=== PATIENT | female | born 1960 | race Caucasian/White ===

== ENCOUNTER 2019-12-04 02:07 | Emergency (ER) | payer OTHER ==
[~2019-12-04] VITALS: Ht 160 cm; Wt 74.3 kg
[2019-12-04 03:26] LABS: BASOPHILS # (AUTO) 0.01 x10^3/uL (0-0.1); BASOPHILS % (AUTO) 0 % (0-1); EOSINOPHILS # (AUTO) 0.04 x10^3/uL (0-0.4); EOSINOPHILS % (AUTO) 0 % (1-7); LYMPHOCYTES # (AUTO) 0.91 x10^3/uL (1-3.4); LYMPHOCYTES % (AUTO) 8 % (22-44); MD NO; MEAN CORPUSCULAR HEMOGLOBIN 30.3 pg (27.0-34.8); MEAN CORPUSCULAR HGB CONC 33.7 g/dL (32.4-35.8); MEAN CORPUSCULAR VOLUME 89.9 fL (80-100); MEAN PLATELET VOLUME 6.9 fL (7.4-10.4); MONOCYTES # (AUTO) 0.49 x10^3/uL (0.2-0.8); MONOCYTES % (AUTO) 5 % (2-9); NEUTROPHILS # (AUTO) 9.31 x10^3/uL (1.8-6.8); NEUTROPHILS % (AUTO) 87 % (42-75); PLATELET COUNT 281 x10^3/uL (130-400); RED BLOOD COUNT 4.91 x10^6/uL (3.82-5.3); RED CELL DISTRIBUTION WIDTH 13.7 % (9.6-15.2)
[2019-12-04 03:30] LABS: ALBUMIN 3.8 g/dL (3.4-5.0); ANION GAP 9 mmol/L (5-15); CALCIUM 9.3 mg/dL (8.5-10.1); CHLORIDE 108 mmol/L (98-107)
[2019-12-04 03:34] LABS: ALANINE AMINOTRANSFERASE 37 U/L (12-78); ALKALINE PHOSPHATASE 102 U/L (45-117); BILIRUBIN,TOTAL 0.8 mg/dL (0.2-1.0); CREATININE 1.23 mg/dL (0.55-1.02); TOTAL PROTEIN 7.8 g/dL (6.4-8.2)
--- NOTE | 2019-12-04 06:10 | NUR ---
PT TO ROOM FROM LOBBY AT THIS TIME.
--- NOTE | 2019-12-04 06:28 | NUR ---
PT RESTING IN GOWN IN [facility]. URINE SAMPLE COLLECTED USING ASEPTIC TECHNIQUE WITH RN, TIFF, AT BS TO ASSIST. PT TOLERATED WELL. SAMPLE WALKED TO LAB AT THIS TIME. PT EDUCATED ON ER PROCESS AND POC AND VERBALIZES UNDERSTANDING. CALL LIGHT IS WITHIN REACH OF PT.
[2019-12-04] MEDS ORDERED: ONDANSETRON 2MG/ML, 2ML IVPush ONE (06:30)
[2019-12-04] MEDS ORDERED: SODIUM CHLORIDE FLUSH 10ML SYR IVF ONE (06:30)
[2019-12-04] MEDS ORDERED: MORPHINE SULFATE 4 MG/ML, 1ML ONE ×2 (06:33→08:23)
[2019-12-04] MEDS ORDERED: ONDANSETRON 2MG/ML, 2ML ONE (06:33)
--- NOTE | 2019-12-04 06:42 | NUR ---
pt medicated per mar for pain. vss and updated in emr.
[2019-12-04] MEDS: MORPHINE SULFATE 4 MG/ML, 1ML IVPush PRN ×2 (06:43→08:25)
[2019-12-04 06:52] LABS: MICROSCOPIC INDICATED
--- NOTE | 2019-12-04 07:00 | NUR ---
RECEIVED REPORT FROM NETTA CONTRERAS AND ASSUMED CARE OF PT. PT RESTING WITH EYES CLOSED
[2019-12-04 07:40] VITALS: BP 116/78
--- NOTE | 2019-12-04 07:41 | NUR ---
DR SINGH AT BEDSIDE DISCUSSING IMAGING AND POC
--- NOTE | 2019-12-04 08:42 | NUR ---
ADDITIONALLY MEDICATED NOTED ON JUL FOR RETURNING LEFT FLANK PAIN. DISCHARGE GIVEN. PT AMBULATED TO W/C AND THEN TO DISCHARGE WINDOW WITH RIDE ON THE WAY
== END 2019-12-04 08:44 | disposition home or self-care (01) ==
LOC: ED 06:19
DX: N13.30 Unspecified hydronephrosis (principal); N23 Unspecified renal colic; N13.4 Hydroureter; R31.9 Hematuria, unspecified
CPT/HCPCS: 36415; 74176; 80053; 81001; 83690; 85025; 96374; 96375; 96376; 99284; J2270; J2405

== ENCOUNTER → 2020-01-12 | Outpatient (CLI) | payer OTHER ==
[2020-01-12 15:29] LABS: BASOPHILS # (AUTO) 0.06 x10^3/uL (0-0.1); BASOPHILS % (AUTO) 1 % (0-1); EOSINOPHILS # (AUTO) 0.15 x10^3/uL (0-0.4); EOSINOPHILS % (AUTO) 2 % (1-7); LYMPHOCYTES # (AUTO) 1.76 x10^3/uL (1-3.4); LYMPHOCYTES % (AUTO) 26 % (22-44); MD NO; MEAN CORPUSCULAR HEMOGLOBIN 30.4 pg (27.0-34.8); MEAN CORPUSCULAR HGB CONC 33.6 g/dL (32.4-35.8); MEAN CORPUSCULAR VOLUME 90.5 fL (80-100); MEAN PLATELET VOLUME 6.6 fL (7.4-10.4); MONOCYTES # (AUTO) 0.53 x10^3/uL (0.2-0.8); MONOCYTES % (AUTO) 8 % (2-9); NEUTROPHILS # (AUTO) 4.35 x10^3/uL (1.8-6.8); NEUTROPHILS % (AUTO) 64 % (42-75); PLATELET COUNT 302 x10^3/uL (130-400); RED BLOOD COUNT 4.56 x10^6/uL (3.82-5.3); RED CELL DISTRIBUTION WIDTH 13.2 % (9.6-15.2)
[2020-01-12 15:36] LABS: MICROSCOPIC INDICATED
[2020-01-12 15:40] LABS: ANION GAP 6 mmol/L (5-15); CALCIUM 8.9 mg/dL (8.5-10.1); CHLORIDE 108 mmol/L (98-107)
[2020-01-12 15:41] LABS: CREATININE 1.02 mg/dL (0.55-1.02)
== END | disposition home or self-care (01) ==
LOC: STAR 14:25
PROVIDERS: ATTEND Urology
DX: Z01.818 Encounter for other preprocedural examination (principal); N13.30 Unspecified hydronephrosis
CPT/HCPCS: 36415; 80048; 81001; 85025; 87086

== ENCOUNTER → 2020-01-21 | Outpatient (CLI) | payer OTHER ==
[~2020-01-21] MED LIST: METHYLENE BLUE 50 MG/10 ML AMP ONE
== END | disposition home or self-care (01) ==
LOC: STAR 14:26
PROVIDERS: ATTEND Anesthesiology
DX: Z20.828 Contact with and (suspected) exposure to other viral communicable diseases (principal)
CPT/HCPCS: 36415; 87635

== ENCOUNTER 2020-01-25 12:06 | Observation (INO) | payer OTHER ==
[~2020-01-25] VITALS: Ht 160 cm; Wt 85.0 kg
[2020-01-25] MEDS ORDERED: LACTATED RINGERS 1,000 ML IV SCH (12:34)
[2020-01-25 12:37] VITALS: BP 130/88
[2020-01-25] MEDS ORDERED: CHLORHEXIDINE 15 ML UDC MM ONE (13:00)
[2020-01-25] MEDS ORDERED: FLUORESCEIN SODIUM 500 MG/5 ML ONE (13:59)
[2020-01-25] MEDS ORDERED: EPINEPHRINE 1 MG/ML, 1ML ONE (13:59)
[2020-01-25] MEDS ORDERED: BUPIVACAINE/PF 0.25% ONE (13:59)
[2020-01-25] MEDS ORDERED: FENTANYL PF 250 MCG/5ML ONE (14:07)
[2020-01-25] MEDS ORDERED: MIDAZOLAM 1 MG/ML, 2ML ONE (14:07)
[2020-01-25] MEDS ORDERED: CEFAZOLIN 1,000 MG ONE (14:33)
[2020-01-25] MEDS ORDERED: DEXAMETHASONE 4 MG/ML, 1ML ONE (14:33)
[2020-01-25] MEDS ORDERED: ROCURONIUM 10 MG/ML,10ML ONE (14:33)
[2020-01-25] MEDS ORDERED: SUCCINYLCHOLINE 20 MG/ML, 10ML ONE (14:33)
[2020-01-25] MEDS ORDERED: SUGAMMADEX 200 MG/2 ML IVPush ONE (14:33)
[2020-01-25] MEDS ORDERED: ONDANSETRON 2MG/ML, 2ML ONE ×2 (14:33→18:10)
[2020-01-25] MEDS ORDERED: PROPOFOL 10 MG/ML, 20ML ONE (14:33)
[2020-01-25] MEDS ORDERED: OXYcodone 5 MG/5 ML ORAL.SOL UDC PO PRN (15:30)
[2020-01-25] MEDS ORDERED: LABETALOL 5MG/ML, 20ML IV PRN (15:30)
[2020-01-25] MEDS ORDERED: ALBUTEROL SULFATE 2.5 MG/3 ML NPPB PRN (15:30)
[2020-01-25] MEDS ORDERED: HYDROmorphone 1 MG/ML, 1ML INJ IV PRN ×2 (15:30→20:00)
[2020-01-25] MEDS ORDERED: FENTANYL PF 100 MCG/2ML IV PRN (15:30)
[2020-01-25] MEDS ORDERED: DIAZEPAM 5 MG/ML, 2ML IV PRN ×2 (15:30)
[2020-01-25] MEDS ORDERED: hydrALAzine 20 MG/ML, 1ML IV PRN (15:30)
[2020-01-25] MEDS ORDERED: PROMETHAZINE 25 MG/ML, 1ML IV PRN (15:30)
[2020-01-25] MEDS ORDERED: KETOROLAC 30 MG/1 ML IV PRN (15:30)
[2020-01-25] MEDS ORDERED: METOCLOPRAMIDE 5 MG/ML, 2ML IV PRN (15:30)
[2020-01-25] MEDS ORDERED: MEPERIDINE/PF 25MG/0.5ML IVPush PRN (15:30)
[2020-01-25] MEDS ORDERED: ONDANSETRON 2MG/ML, 2ML IVPush PRN (15:30)
[2020-01-25] MEDS ORDERED: OXYcodone 5 MG/5 ML ORAL.SOL UDC ONE (17:39)
[2020-01-25] MEDS ORDERED: FENTANYL PF 100 MCG/2ML ONE ×2 (17:39→17:43)
[2020-01-25] MEDS ORDERED: PROMETHAZINE 25 MG/ML, 1ML ONE (18:30)
[2020-01-25] MEDS ORDERED: HYDROmorphone 1 MG/ML, 1ML INJ ONE (18:34)
[2020-01-25] MEDS ORDERED: ACETAMINOPHEN 500 MG TABLET PO PRN (20:00)
[2020-01-25] MEDS ORDERED: ONDANSETRON 2MG/ML, 2ML IV PRN (20:00)
[2020-01-25] MEDS: LACTATED RINGERS 1,000 ML IV SCH (23:41)
[2020-01-26 03:03] VITALS: BP 106/68
[2020-01-26] MEDS: OXYcodone IR 5MG TABLET PO PRN ×3 (03:10→12:06)
[2020-01-26] MEDS: LACTATED RINGERS 1,000 ML IV SCH (07:30)
[2020-01-26 08:37] VITALS: BP 110/68
== END 2020-01-26 12:27 | disposition home or self-care (01) ==
LOC: OUT 12:06 → 4NE 19:20 → OUT 19:41 → 4NE 20:03 → DCLOUNGE 01-26 12:17
PROVIDERS: ADMIT Urology; ATTEND Urology
DX: N13.1 Hydronephrosis with ureteral stricture, not elsewhere classified (principal); Z79.899 Other long term (current) drug therapy; Z87.891 Personal history of nicotine dependence
CPT/HCPCS: 50544; 88305; 96360; 96361; C1760; C1769; C2617; G0378; J0171; J0330; J0690; J1100; J1170; J2250; J2405; J2550; J2704; J3010; J7120; Q9968